=== PATIENT | male | born 1945 | race Native Hawaiian/Other Pacific Islander ===

== ENCOUNTER 2018-01-26 06:51 | Day surgery (SDC) | payer MEDICARE, OTHER ==
[2018-01-26 07:14] VITALS: BMI 26.6
[2018-01-26 07:41] VITALS: O2SAT 100
--- NOTE | 2018-01-26 08:55 | CP.SDSHP ---
Same Day Surgery H & P - History Proposed Procedure: COLONSCOPY Pre-Op Diagnosis: SEE NOTES - Previous Medical/Surgical History Cardiac: Hypertension, ASHD/CAD Endocrine/Metabolic: Diabetes, Other Neuro: Backaches - Allergies Allergies: Allergies No Known Allergies Allergy (Unverified 12/01/14 10:09) - Physical Exam General Appearance: N Vital Signs: Vital Signs 01/26/18 07:28 Temperature 97 F L Pulse Rate 67 Respiratory 16 Rate Blood Pressure 132/53 L O2 Sat by Pulse 100 Oximetry Mental Status: Alert & Oriented x3 Neuro: WNL Lungs: WNL GI: WNL - {Optional Preform as Required} Breast: WNL Abdomen: WNL Integument: WNL : WNL Ortho: Other ENT: WNL - Impression Pt. Evaluated Today:Candidate for Anesthesia & Procedure: Yes - Date & Time Time: 08:55 Short Stay Discharge - Short Stay Discharge Admitting Diagnosis/Reason for Visit: ENCOUNTER FOR SCREENING FOR MALIGNANT NEOPLASM OF Disposition: HOME/ ROUTINE
[2018-01-26] MEDS ORDERED: Belladonna-Phenobarbital PO STA (08:57)
[2018-01-26] MEDS ORDERED: Propofol 10 mg/ml Inj (20 ML) ONE (08:58)
[2018-01-26] MEDS ORDERED: Pantoprazole 40 mg EC Tab PO STA (08:58)
[2018-01-26] MEDS ORDERED: Lactated Ringer's 500 ML IV SCH (09:00)
[2018-01-26 09:27] VITALS: TEMP 98.7
[2018-01-26 09:59] VITALS: BP 123/56; PULSE 59; RESP 12
== END 2018-01-26 10:05 | disposition home or self-care (01) ==
LOC: C.ENDO 06:51
PROVIDERS: ATTEND Specialist
DX: K52.89 Other specified noninfective gastroenteritis and colitis (principal); K64.8 Other hemorrhoids
CPT/HCPCS: 45380; 82948; 88305; J2704; J3010; J7040; J7120